=== PATIENT | female | born 1940 | race Caucasian/White ===

== ENCOUNTER 2022-02-21 11:20 | Day surgery (SDC) | payer MEDICARE, MEDICAID ==
[2022-02-20 12:54] LABS: BASOPHILS # (AUTO) 0.1 X10'3 (0-0.2); BASOPHILS % (AUTO) 1.3 % (0-1); EOSINOPHILS # (AUTO) 0.2 X10'3 (0-0.9); EOSINOPHILS % (AUTO) 3.2 % (0-6); HEMATOCRIT 39.4 % (35.0-45.0); HEMOGLOBIN 13.3 g/dl (12.0-16.0); LYMPHOCYTES % (AUTO) 34.1 % (21-51); MEAN CORPUSCULAR HEMOGLOBIN 32.8 PG (27.0-31.0); MEAN CORPUSCULAR HGB CONC 33.9 g/dL (33.0-36.5); MEAN PLATELET VOLUME 7.6 FL (7.4-10.4); MONOCYTES # (AUTO) 0.5 X10'3 (0-0.9); MONOCYTES % (AUTO) 8.6 % (2-12); NEUTROPHILS # (AUTO) 3.1 X10'3 (1.8-7.7); NEUTROPHILS % (AUTO) 52.8 % (42-75); PLATELET COUNT 243 X10'3 (140-440); RED BLOOD COUNT 4.06 X10'6 (4.20-5.60); RED CELL DISTRIBUTION WIDTH 13.3 % (11.5-14.5); WHITE BLOOD COUNT 5.9 X10'3 (4.5-11.0)
[2022-02-20 13:11] LABS: APTT 27 SECONDS (22-32)
[2022-02-20 13:14] LABS: ALANINE AMINOTRANSFERASE 37 U/L (12-78); ALBUMIN 3.9 G/DL (3.4-5.0); ALBUMIN/GLOBULIN RATIO 1.2 (1.1-1.5); ALKALINE PHOSPHATASE 68 IU/L (46-116); ANION GAP 9 (8-16); ASPARTATE AMINO TRANSFERASE 32 U/L (10-37); BILIRUBIN,TOTAL 0.4 MG/DL (0.1-1.0); BLOOD UREA NITROGEN 16 MG/DL (7-18); BUN/CREATININE RATIO 16.8 (6.6-38.0); CHLORIDE 107 MMOL/L (99-107); CREATININE 0.95 MG/DL (0.40-0.90); GLUCOSE 122 MG/DL (70-104); POTASSIUM 3.9 MMOL/L (3.5-5.1); SODIUM 140 MMOL/L (135-145); TOTAL CARBON DIOXIDE 23.7 MMOL/L (24-32); TOTAL PROTEIN 7.2 G/DL (6.4-8.2); eGFR 56 ML/MIN
[~2022-02-21] VITALS: Ht 162.6 cm; Wt 78.0 kg
[2022-02-21] VITALS (11 sets, daily range): BP systolic 151–174; BP diastolic 68–98
[2022-02-21] MEDS ORDERED: LEVO-145 PO (11:37)
[2022-02-21] MEDS ORDERED: LISI10TA27 PO (11:37)
[2022-02-21] MEDS ORDERED: SIMV-42 PO (11:37)
[2022-02-21] MEDS ORDERED: normal saline 1,000 ML IV SCH (11:45)
[2022-02-21] MEDS ORDERED: nitroGLYCERIN 0.4mg SUBLingual tab SL PRN ×2 (11:45→16:25)
[2022-02-21] MEDS ORDERED: diphenhydrAMINE 25mg capsule PO PRN (11:45)
[2022-02-21] MEDS ORDERED: LORazepam 0.5 MG tablet PO PRN (11:45)
[2022-02-21] MEDS ORDERED: LIDOCAINE 1% w/preservative (10 MG/ML) inj. 10mL VIAL ONE (14:03)
[2022-02-21] MEDS ORDERED: iohexol 350MG/ML 100ml bottle IV ONE (14:04)
[2022-02-21] MEDS ORDERED: iohexol 350 MG/ML 50ML vial IV ONE ×2 (14:04→14:40)
[2022-02-21] MEDS ORDERED: fentaNYL/PF 50MCG/1 ML 2ML syringe ONE (14:04)
[2022-02-21] MEDS ORDERED: midazolam 1 mg/ML 2ml injection ONE (14:04)
[2022-02-21] MEDS ORDERED: heparin 1,000 UNITS/NS 500ml 500 ML ONE (14:05)
[2022-02-21] MEDS ORDERED: HYDROcodone/acetaminophen 10/325mg tab PO PRN (16:25)
[2022-02-21] MEDS ORDERED: ondansetron/PF 4mg/2ml inj IV PRN (16:25)
[2022-02-21] MEDS ORDERED: normal saline 1000ml 1,000 ML IV SCH (16:25)
[2022-02-21] MEDS ORDERED: OXAZEpam 15mg capsule PO PRN (16:25)
[2022-02-21] MEDS ORDERED: proCHLORperazine 10 MG/2 ml inj IV PRN (16:25)
[2022-02-21] MEDS ORDERED: HYDROcodone/acetaminophen 5mg/325mg tablet PO PRN (16:25)
== END 2022-02-21 20:49 | disposition home or self-care (01) ==
LOC: SSTAY O 11:20
PROVIDERS: ATTEND Internal Medicine Cardiovascular Disease
DX: R94.39 Abnormal result of other cardiovascular function study (principal); I25.10 Atherosclerotic heart disease of native coronary artery without angina pectoris; I10 Essential (primary) hypertension; E78.5 Hyperlipidemia, unspecified; K76.0 Fatty (change of) liver, not elsewhere classified; M19.90 Unspecified osteoarthritis, unspecified site; Z88.2 Allergy status to sulfonamides; Z79.899 Other long term (current) drug therapy; Z87.891 Personal history of nicotine dependence
CPT/HCPCS: 36415; 71046; 80053; 85025; 85610; 85730; 93458; 99152; 99153; C1760; C1769; J1644; J2250; J3010; J7030; Q0163; Q9967; 93567; A4620; A6258